=== PATIENT | male | born 1960 | race Hispanic/Latino ===

== ENCOUNTER 2022-09-28 13:56 | Inpatient (IN) | payer OTHER ==
[2022-09-28 14:39] LABS: #Basophils 0.1 thou/uL (0.0-0.2); #Eosinphils 0.1 thou/uL (0.0-0.7); #Lymphocytes 3.1 thou/uL (1.20-3.40); #Monocytes 0.9 thou/uL (0.11-0.59); #Neutrophils 8.8 thou/uL (1.40-6.50); %Basophils 0.4 % (0.0-1.0); %Eosinophils 1.1 % (0.0-10.0); %Lymphocytes 23.9 % (21.0-51.0); %Monocytes 7.1 % (0.0-10.0); %Neutrophils 67.4 % (42.0-75.0); Hemoglobin 15.8 g/dL (14.0-18.0); Mean Corpuscular HGB CONC 33.9 g/dL (32.0-36.0); Mean Corpuscular Hemoglobin 32.4 pg (27.0-31.0); Mean Corpuscular Volume 95.4 fl (78.0-98.0); Mean Platelet Volume 9.8 fL (7.4-10.4); Platelet Count 104 10x3/uL (130-400); RBC Distribution Width 11.9 % (11.5-14.5); Red Blood Cell (RBC) Count 4.87 mill/uL (4.70-6.10); White Blood Cell (WBC) Count 13.1 10x3/uL (4.8-10.8)
[2022-09-28 14:54] LABS: Platelet Morphology Comment Appears Decreased; RBC Morphology Normal
[2022-09-28 14:58] LABS: ALT (SGPT) 30 U/L (8-55); AST (SGOT) 23 U/L (5-34); Alkaline Phosphatase 100 U/L (40-110); Anion Gap 21 mmol/L (10-20); BUN (Urea Nitrogen) 14 mg/dL (8.4-25.7); Calc. Creatinine Clearance 0 mL/min (70-130); Calcium 9.6 mg/dL (7.8-10.44); Carbon Dioxide 16 mmol/L (22-29); Chloride 101 mmol/L (98-107); Estimated GFR 88; Globulin 5.5 g/dL (2.4-3.5); Glucose 179 mg/dL (70-105); Potassium 3.7 mmol/L (3.5-5.1); Protein, Total 9.5 g/dL (6.0-8.3); Sodium 134 mmol/L (136-145)
[2022-09-28] MEDS ORDERED: Vancomycin 1 GM/200 ML (FROZEN) BAG ONE (16:23)
[2022-09-28] MEDS ORDERED: Morphine 4 MG/ML VIAL ONE (16:23)
[2022-09-28] MEDS ORDERED: Acetaminophen 500 MG TAB ONE (16:23)
[2022-09-28] MEDS ORDERED: hydrALAZINE 20 MG/ML VIAL ONE (16:23)
[2022-09-28] MEDS ORDERED: Ondansetron PF 4 MG/2 ML Vial ONE (16:23)
[2022-09-28] MEDS ORDERED: Piperacillin/Tazobactam 4.5 GM VIAL ONE (16:24)
[2022-09-28] MEDS ORDERED: Ondansetron ODT 4 MG TAB PO PRN (17:11)
[2022-09-28] MEDS ORDERED: Senokot S 8.6-50 MG TAB PO PRN (17:11)
[2022-09-28 19:28] VITALS: BMI 25.9
[2022-09-28] MEDS ORDERED: VANCOMYCIN IVPB PRN (19:57)
[2022-09-28] MEDS ORDERED: Vancomycin HCl 750 MG in Sodium Chloride 0.9% 250 ML 250 ML IVPB SCH (20:00)
[2022-09-28] MEDS: Famotidine 20 MG TAB PO SCH (21:00)
[2022-09-28] MEDS: Rosuvastatin 20 MG TAB PO SCH (21:00)
[2022-09-28] MEDS ORDERED: Vancomycin 1.5 GRAM/300 ML BAG IVPB SCH (21:00)
[2022-09-28] MEDS: Piperacillin/Tazobactam 3.375 GM in Sodium Chloride 0.9% 100 ML IVPB SCH (21:08)
[2022-09-29] MEDS: Piperacillin/Tazobactam 3.375 GM in Sodium Chloride 0.9% 100 ML IVPB SCH ×3 (04:03→19:52)
[2022-09-29] MEDS: VANCOMYCIN 1.25 GM/250 ML BAG 1.25 GM in Premix Bag 1 BAG IVPB SCH ×2 (04:05→17:55)
[2022-09-29 06:20] LABS: #Eosinphils 0.2 thou/uL (0.0-0.7); #Monocytes 0.7 thou/uL (0.11-0.59); #Neutrophils 7.4 thou/uL (1.40-6.50); %Basophils 0.5 % (0.0-1.0); %Lymphocytes 19.5 % (21.0-51.0); %Neutrophils 71.2 % (42.0-75.0); Hemoglobin 14.3 g/dL (14.0-18.0); Mean Corpuscular HGB CONC 33.8 g/dL (32.0-36.0); Mean Corpuscular Hemoglobin 32.8 pg (27.0-31.0); Mean Corpuscular Volume 96.9 fl (78.0-98.0); Mean Platelet Volume 9.9 fL (7.4-10.4); Platelet Count 95 10x3/uL (130-400); RBC Distribution Width 11.8 % (11.5-14.5); Red Blood Cell (RBC) Count 4.35 mill/uL (4.70-6.10); White Blood Cell (WBC) Count 10.4 10x3/uL (4.8-10.8)
[2022-09-29 06:44] LABS: Anion Gap 18 mmol/L (10-20); BUN (Urea Nitrogen) 16 mg/dL (8.4-25.7); Calc. Creatinine Clearance 115 mL/min (70-130); Calcium 8.8 mg/dL (7.8-10.44); Carbon Dioxide 18 mmol/L (22-29); Chloride 101 mmol/L (98-107); Estimated GFR 101; Glucose 115 mg/dL (70-105); Potassium 3.9 mmol/L (3.5-5.1); Sodium 133 mmol/L (136-145)
[2022-09-29] MEDS: Lisinopril 10 MG TAB PO SCH (08:08)
[2022-09-29] MEDS: Famotidine 20 MG TAB PO SCH ×2 (08:08→19:53)
[2022-09-29] MEDS ORDERED: FLU VACC QS2022-23(6MOS UP)/PF 60 MCG/0.5 ML SYRINGE IM ONE (09:00)
[2022-09-29] MEDS ORDERED: Lactated Ringer's 1,000 ML IV SCH (10:45)
[2022-09-29] MEDS ORDERED: Dextrose 5% in Water 1,000 ML IV PRN (18:40)
[2022-09-29] MEDS ORDERED: Dextrose 50% Abboject 50 ML SYRINGE SLOW IVP PRN (18:40)
[2022-09-29] MEDS: Insulin Regular 300 UNITS/3 ML VIAL SC PRN (19:52)
[2022-09-29] MEDS: Rosuvastatin 20 MG TAB PO SCH (19:53)
[2022-09-29] MEDS: Acetaminophen 325 MG TAB PO PRN (21:04)
[2022-09-30 05:02] LABS: #Basophils 0.1 thou/uL (0.0-0.2); #Eosinphils 0.3 thou/uL (0.0-0.7); #Lymphocytes 2.3 thou/uL (1.20-3.40); #Monocytes 0.9 thou/uL (0.11-0.59); %Basophils 0.7 % (0.0-1.0); %Eosinophils 3.1 % (0.0-10.0); %Lymphocytes 24.1 % (21.0-51.0); %Monocytes 9.8 % (0.0-10.0); %Neutrophils 62.3 % (42.0-75.0); Hemoglobin 14.2 g/dL (14.0-18.0); Mean Corpuscular HGB CONC 33.7 g/dL (32.0-36.0); Mean Corpuscular Hemoglobin 32.8 pg (27.0-31.0); Mean Corpuscular Volume 97.1 fl (78.0-98.0); Mean Platelet Volume 9.3 fL (7.4-10.4); Platelet Count 102 10x3/uL (130-400); RBC Distribution Width 11.9 % (11.5-14.5); Red Blood Cell (RBC) Count 4.35 mill/uL (4.70-6.10); White Blood Cell (WBC) Count 9.6 10x3/uL (4.8-10.8)
[2022-09-30 05:12] LABS: Anion Gap 17 mmol/L (10-20); BUN (Urea Nitrogen) 19 mg/dL (8.4-25.7); Calc. Creatinine Clearance 107 mL/min (70-130); Carbon Dioxide 17 mmol/L (22-29); Chloride 104 mmol/L (98-107); Estimated GFR 98; Glucose 120 mg/dL (70-105); Potassium 3.9 mmol/L (3.5-5.1); Sodium 134 mmol/L (136-145)
[2022-09-30] MEDS: VANCOMYCIN 1.25 GM/250 ML BAG 1.25 GM in Premix Bag 1 BAG IVPB SCH ×2 (05:24→17:45)
[2022-09-30] MEDS: Piperacillin/Tazobactam 3.375 GM in Sodium Chloride 0.9% 100 ML IVPB SCH ×3 (05:24→20:34)
[2022-09-30] MEDS: Famotidine 20 MG TAB PO SCH ×2 (08:21→20:34)
[2022-09-30] MEDS: Lisinopril 10 MG TAB PO SCH (08:22)
[2022-09-30] MEDS: Insulin Regular 300 UNITS/3 ML VIAL SC PRN (13:00)
[2022-09-30] MEDS: Rosuvastatin 20 MG TAB PO SCH (20:34)
[2022-10-01] MEDS: VANCOMYCIN 1.25 GM/250 ML BAG 1.25 GM in Premix Bag 1 BAG IVPB SCH ×2 (05:24→17:05)
[2022-10-01] MEDS: cefTRIAXone\\ROCEPHIN 2 GM in Sodium Chloride 0.9% 100 ML IVPB SCH (07:12)
[2022-10-01] MEDS: Famotidine 20 MG TAB PO SCH ×2 (08:08→20:29)
[2022-10-01] MEDS: Lisinopril 10 MG TAB PO SCH (08:08)
[2022-10-01 16:43] LABS: Vancomycin, Trough 12.7 ug/mL
[2022-10-01] MEDS: Rosuvastatin 20 MG TAB PO SCH (20:29)
[2022-10-02] MEDS: cefTRIAXone\\ROCEPHIN 2 GM in Sodium Chloride 0.9% 100 ML IVPB SCH (05:02)
[2022-10-02] MEDS: VANCOMYCIN 1.25 GM/250 ML BAG 1.25 GM in Premix Bag 1 BAG IVPB SCH ×2 (06:09→17:56)
[2022-10-02 06:49] LABS: #Basophils 0.1 thou/uL (0.0-0.2); #Eosinphils 0.3 thou/uL (0.0-0.7); #Lymphocytes 2.2 thou/uL (1.20-3.40); #Monocytes 1.1 thou/uL (0.11-0.59); #Neutrophils 6.5 thou/uL (1.40-6.50); %Basophils 0.7 % (0.0-1.0); %Eosinophils 2.8 % (0.0-10.0); %Lymphocytes 21.5 % (21.0-51.0); %Monocytes 10.9 % (0.0-10.0); %Neutrophils 64.1 % (42.0-75.0); Hemoglobin 14.6 g/dL (14.0-18.0); Mean Corpuscular HGB CONC 34.5 g/dL (32.0-36.0); Mean Corpuscular Hemoglobin 32.7 pg (27.0-31.0); Mean Corpuscular Volume 94.7 fl (78.0-98.0); Mean Platelet Volume 8.9 fL (7.4-10.4); Platelet Count 128 10x3/uL (130-400); RBC Distribution Width 11.8 % (11.5-14.5); Red Blood Cell (RBC) Count 4.47 mill/uL (4.70-6.10); White Blood Cell (WBC) Count 10.2 10x3/uL (4.8-10.8)
[2022-10-02 07:09] LABS: Anion Gap 18 mmol/L (10-20); BUN (Urea Nitrogen) 15 mg/dL (8.4-25.7); Calc. Creatinine Clearance 112 mL/min (70-130); Carbon Dioxide 15 mmol/L (22-29); Chloride 102 mmol/L (98-107); Estimated GFR 100; Glucose 145 mg/dL (70-105); Potassium 3.9 mmol/L (3.5-5.1); Sodium 131 mmol/L (136-145)
[2022-10-02] MEDS: Sodium Bicarbonate Tab 325 MG TAB PO SCH ×3 (08:27→22:18)
[2022-10-02] MEDS: Famotidine 20 MG TAB PO SCH ×2 (08:27→22:18)
[2022-10-02] MEDS: Lisinopril 10 MG TAB PO SCH (08:29)
[2022-10-02] MEDS: Insulin Regular 300 UNITS/3 ML VIAL SC PRN ×2 (12:48→18:49)
[2022-10-02] MEDS: Rosuvastatin 20 MG TAB PO SCH (22:18)
[2022-10-03] MEDS: Acetaminophen 325 MG TAB PO PRN (04:38)
[2022-10-03] MEDS: cefTRIAXone\\ROCEPHIN 2 GM in Sodium Chloride 0.9% 100 ML IVPB SCH (04:39)
[2022-10-03 06:47] LABS: Anion Gap 17 mmol/L (10-20); BUN (Urea Nitrogen) 18 mg/dL (8.4-25.7); Calc. Creatinine Clearance 115 mL/min (70-130); Calcium 8.8 mg/dL (7.8-10.44); Carbon Dioxide 18 mmol/L (22-29); Chloride 103 mmol/L (98-107); Estimated GFR 101; Glucose 141 mg/dL (70-105); Potassium 3.5 mmol/L (3.5-5.1); Sodium 134 mmol/L (136-145)
[2022-10-03] MEDS ORDERED: Ibuprofen 200 MG TAB PO SCH (09:00)
[2022-10-03] MEDS ORDERED: Ibuprofen 600 MG TAB PO SCH (09:00)
[2022-10-03] MEDS: Acetaminophen 325 MG TAB PO SCH ×3 (09:41→20:50)
[2022-10-03] MEDS: Sodium Bicarbonate Tab 325 MG TAB PO SCH ×3 (09:42→20:50)
[2022-10-03] MEDS: Famotidine 20 MG TAB PO SCH ×2 (09:42→20:50)
[2022-10-03] MEDS: Lisinopril 10 MG TAB PO SCH (09:42)
[2022-10-03] MEDS: Insulin Regular 300 UNITS/3 ML VIAL SC PRN ×3 (11:39→20:51)
[2022-10-03] MEDS: Rosuvastatin 20 MG TAB PO SCH (20:50)
[2022-10-03] MEDS ORDERED: Doxycycline 100 MG CAP PO SCH (21:00)
[2022-10-04] MEDS: Acetaminophen 325 MG TAB PO PRN (05:23)
[2022-10-04] MEDS ORDERED: cefTRIAXone\\ROCEPHIN 2 GM VIAL ONE (05:24)
[2022-10-04] MEDS: cefTRIAXone\\ROCEPHIN 2 GM in Sodium Chloride 0.9% 100 ML IVPB SCH (05:26)
[2022-10-04 06:29] LABS: #Basophils 0.1 thou/uL (0.0-0.2); #Eosinphils 0.2 thou/uL (0.0-0.7); #Lymphocytes 2.3 thou/uL (1.20-3.40); #Neutrophils 5.7 thou/uL (1.40-6.50); %Basophils 0.7 % (0.0-1.0); %Eosinophils 2.4 % (0.0-10.0); %Lymphocytes 25.2 % (21.0-51.0); %Monocytes 10.5 % (0.0-10.0); %Neutrophils 61.3 % (42.0-75.0); Hemoglobin 14.9 g/dL (14.0-18.0); Mean Corpuscular HGB CONC 35.3 g/dL (32.0-36.0); Mean Corpuscular Hemoglobin 33.1 pg (27.0-31.0); Mean Corpuscular Volume 93.9 fl (78.0-98.0); Mean Platelet Volume 8.8 fL (7.4-10.4); Platelet Count 140 10x3/uL (130-400); RBC Distribution Width 11.8 % (11.5-14.5); Red Blood Cell (RBC) Count 4.49 mill/uL (4.70-6.10); White Blood Cell (WBC) Count 9.3 10x3/uL (4.8-10.8)
[2022-10-04 06:45] LABS: Anion Gap 14 mmol/L (10-20); BUN (Urea Nitrogen) 17 mg/dL (8.4-25.7); Calc. Creatinine Clearance 111 mL/min (70-130); Carbon Dioxide 21 mmol/L (22-29); Chloride 104 mmol/L (98-107); Estimated GFR 99; Glucose 128 mg/dL (70-105); Potassium 3.5 mmol/L (3.5-5.1); Sodium 135 mmol/L (136-145)
[2022-10-04] MEDS ORDERED: CEFAZOLIN 2 GM in Sodium Chloride 0.9% 100 ML IVPB SCH (08:30)
[2022-10-04] MEDS ORDERED: Vancomycin 1 GM in Premix Bag 1 BAG IVPB SCH (08:45)
[2022-10-04] MEDS ORDERED: Neomycin-Polymyxin 1 ML AMP ONE (16:53)
[2022-10-04] MEDS ORDERED: Sodium Chloride 0.9% 100 ML ONE (17:14)
[2022-10-04] MEDS ORDERED: CEFAZOLIN 2 GM VIAL ONE (17:14)
[2022-10-04] MEDS ORDERED: Morphine 10 MG/ML VIAL ONE ×2 (17:26→17:49)
[2022-10-04] MEDS ORDERED: PROPOFOL 200 MG/20 ML VIAL ONE (17:28)
[2022-10-04] MEDS ORDERED: Lidocaine 1% PF 5 ML VIAL ONE (17:28)
[2022-10-04] MEDS ORDERED: Ondansetron PF 4 MG/2 ML Vial ONE (17:28)
[2022-10-04] MEDS ORDERED: Ketorolac Tromethamine 30 MG/ML VIAL ONE (17:28)
[2022-10-04] MEDS ORDERED: Ondansetron HCl/PF 4 MG/2 ML Vial IVP PRN (18:05)
[2022-10-04] MEDS ORDERED: Promethazine HCl 25 MG/ML VIAL IVPB PRN (18:05)
[2022-10-04] MEDS ORDERED: Promethazine HCl 25 MG/ML VIAL IM PRN (18:05)
[2022-10-04] MEDS ORDERED: Fentanyl 100 MCG/2 ML VIAL ONE ×2 (18:19→19:17)
[2022-10-04] MEDS ORDERED: Labetalol HCl 100 MG/20 ML VIAL ONE (18:30)
[2022-10-04] MEDS: Acetaminophen 325 MG TAB PO SCH ×3 (19:00→19:59)
[2022-10-04] MEDS: Lisinopril 10 MG TAB PO SCH (19:01)
[2022-10-04] MEDS: Potassium Bicarbonate/Cit Ac 20 MEQ TAB PO SCH ×2 (19:01→19:03)
[2022-10-04] MEDS: Famotidine 20 MG TAB PO SCH ×2 (19:01→19:59)
[2022-10-04] MEDS: VANCOMYCIN 1.75 GM/500 ML BAG 1.75 GM in Premix Bag 1 BAG IVPB SCH ×2 (19:02→20:53)
[2022-10-04] MEDS: Sodium Bicarbonate Tab 325 MG TAB PO SCH (19:02)
[2022-10-04] MEDS: Rosuvastatin 20 MG TAB PO SCH (19:59)
[2022-10-04] MEDS: hydrALAZINE 25 MG TAB PO PRN (20:59)
[2022-10-05] MEDS: Acetaminophen 325 MG TAB PO PRN (02:24)
[2022-10-05] MEDS: cefTRIAXone\\ROCEPHIN 2 GM in Sodium Chloride 0.9% 100 ML IVPB SCH (05:05)
[2022-10-05] MEDS: Morphine 4 MG/ML VIAL SLOW IVP PRN ×2 (05:10→18:17)
[2022-10-05 07:27] LABS: #Basophils 0.1 thou/uL (0.0-0.2); #Eosinphils 0.2 thou/uL (0.0-0.7); #Lymphocytes 1.9 thou/uL (1.20-3.40); #Neutrophils 6.6 thou/uL (1.40-6.50); %Basophils 0.8 % (0.0-1.0); %Eosinophils 2.1 % (0.0-10.0); %Lymphocytes 19.4 % (21.0-51.0); %Monocytes 10.4 % (0.0-10.0); %Neutrophils 67.3 % (42.0-75.0); Hemoglobin 13.9 g/dL (14.0-18.0); Mean Corpuscular HGB CONC 33.8 g/dL (32.0-36.0); Mean Corpuscular Hemoglobin 32.3 pg (27.0-31.0); Mean Corpuscular Volume 95.5 fl (78.0-98.0); Mean Platelet Volume 8.4 fL (7.4-10.4); Platelet Count 153 10x3/uL (130-400); RBC Distribution Width 11.7 % (11.5-14.5); White Blood Cell (WBC) Count 9.8 10x3/uL (4.8-10.8)
[2022-10-05 07:49] LABS: Anion Gap 13 mmol/L (10-20); BUN (Urea Nitrogen) 17 mg/dL (8.4-25.7); Calc. Creatinine Clearance 111 mL/min (70-130); Calcium 8.6 mg/dL (7.8-10.44); Carbon Dioxide 20 mmol/L (22-29); Chloride 104 mmol/L (98-107); Estimated GFR 99; Glucose 150 mg/dL (70-105); Potassium 3.8 mmol/L (3.5-5.1); Sodium 133 mmol/L (136-145)
[2022-10-05] MEDS: Acetaminophen 325 MG TAB PO SCH (09:20)
[2022-10-05] MEDS: Famotidine 20 MG TAB PO SCH ×2 (09:20→20:26)
[2022-10-05] MEDS: Lisinopril 10 MG TAB PO SCH ×2 (09:20→20:26)
[2022-10-05] MEDS: VANCOMYCIN 1.75 GM/500 ML BAG 1.75 GM in Premix Bag 1 BAG IVPB SCH ×2 (09:26→20:38)
[2022-10-05] MEDS: hydrALAZINE 25 MG TAB PO PRN (09:26)
[2022-10-05] MEDS: Insulin Regular 300 UNITS/3 ML VIAL SC PRN (12:00)
[2022-10-05] MEDS: Rosuvastatin 20 MG TAB PO SCH (20:27)
[2022-10-05 20:52] LABS: Vancomycin, Trough 23.9 ug/mL
[2022-10-06] MEDS: cefTRIAXone\\ROCEPHIN 2 GM in Sodium Chloride 0.9% 100 ML IVPB SCH (06:07)
[2022-10-06 07:13] LABS: #Basophils 0.1 thou/uL (0.0-0.2); #Eosinphils 0.2 thou/uL (0.0-0.7); #Lymphocytes 2.2 thou/uL (1.20-3.40); #Monocytes 0.9 thou/uL (0.11-0.59); #Neutrophils 5.4 thou/uL (1.40-6.50); %Basophils 0.9 % (0.0-1.0); %Eosinophils 2.2 % (0.0-10.0); %Monocytes 10.2 % (0.0-10.0); %Neutrophils 61.8 % (42.0-75.0); Mean Corpuscular HGB CONC 34.6 g/dL (32.0-36.0); Mean Corpuscular Hemoglobin 33.2 pg (27.0-31.0); Mean Corpuscular Volume 96.1 fl (78.0-98.0); Mean Platelet Volume 8.4 fL (7.4-10.4); Platelet Count 165 10x3/uL (130-400); RBC Distribution Width 11.7 % (11.5-14.5); Red Blood Cell (RBC) Count 4.21 mill/uL (4.70-6.10); White Blood Cell (WBC) Count 8.8 10x3/uL (4.8-10.8)
[2022-10-06 07:42] LABS: Anion Gap 13 mmol/L (10-20); BUN (Urea Nitrogen) 11 mg/dL (8.4-25.7); Calc. Creatinine Clearance 99 mL/min (70-130); Calcium 8.5 mg/dL (7.8-10.44); Carbon Dioxide 20 mmol/L (22-29); Chloride 105 mmol/L (98-107); Estimated GFR 92; Glucose 182 mg/dL (70-105); Sodium 134 mmol/L (136-145)
[2022-10-06] MEDS: Lisinopril 10 MG TAB PO SCH ×2 (08:41→20:13)
[2022-10-06] MEDS: Famotidine 20 MG TAB PO SCH ×2 (08:41→20:13)
[2022-10-06] MEDS: VANCOMYCIN 1.25 GM/250 ML BAG 1.25 GM in Premix Bag 1 BAG IVPB SCH ×2 (08:42→20:13)
[2022-10-06] MEDS: HYDROcodone/Acetaminophen 5/325 mg Tablet PO PRN ×2 (08:45→18:26)
[2022-10-06] MEDS: Morphine 4 MG/ML VIAL SLOW IVP PRN (11:37)
[2022-10-06] MEDS: Insulin Regular 300 UNITS/3 ML VIAL SC PRN (13:37)
[2022-10-06] MEDS: Rosuvastatin 20 MG TAB PO SCH (20:14)
[2022-10-07] MEDS: HYDROcodone/Acetaminophen 5/325 mg Tablet PO PRN ×3 (02:05→22:12)
[2022-10-07] MEDS: cefTRIAXone\\ROCEPHIN 2 GM in Sodium Chloride 0.9% 100 ML IVPB SCH (05:03)
[2022-10-07] MEDS: Famotidine 20 MG TAB PO SCH ×2 (08:47→20:26)
[2022-10-07] MEDS: Lisinopril 10 MG TAB PO SCH ×2 (08:47→20:27)
[2022-10-07] MEDS: VANCOMYCIN 1.25 GM/250 ML BAG 1.25 GM in Premix Bag 1 BAG IVPB SCH (08:47)
[2022-10-07] MEDS: Morphine 4 MG/ML VIAL SLOW IVP PRN ×2 (14:28→20:23)
[2022-10-07] MEDS: Insulin Regular 300 UNITS/3 ML VIAL SC PRN ×2 (18:08→20:30)
[2022-10-07] MEDS: Senokot S 8.6-50 MG TAB PO SCH (20:26)
[2022-10-07] MEDS: Rosuvastatin 20 MG TAB PO SCH (20:26)
[2022-10-07] MEDS: Vancomycin 1 GM in Premix Bag 1 BAG IVPB SCH (22:00)
[2022-10-08] MEDS: Morphine 4 MG/ML VIAL SLOW IVP PRN ×2 (06:01→20:20)
[2022-10-08 08:01] LABS: #Basophils 0.1 thou/uL (0.0-0.2); #Eosinphils 0.3 thou/uL (0.0-0.7); #Lymphocytes 2.8 thou/uL (1.20-3.40); #Monocytes 0.8 thou/uL (0.11-0.59); #Neutrophils 5.9 thou/uL (1.40-6.50); %Basophils 1.1 % (0.0-1.0); %Eosinophils 2.8 % (0.0-10.0); %Lymphocytes 28.9 % (21.0-51.0); %Monocytes 7.7 % (0.0-10.0); %Neutrophils 59.5 % (42.0-75.0); Hemoglobin 15.6 g/dL (14.0-18.0); Mean Corpuscular HGB CONC 34.5 g/dL (32.0-36.0); Mean Corpuscular Hemoglobin 32.7 pg (27.0-31.0); Mean Corpuscular Volume 94.8 fl (78.0-98.0); Mean Platelet Volume 8.8 fL (7.4-10.4); Platelet Count 252 10x3/uL (130-400); RBC Distribution Width 11.7 % (11.5-14.5); Red Blood Cell (RBC) Count 4.78 mill/uL (4.70-6.10); White Blood Cell (WBC) Count 9.8 10x3/uL (4.8-10.8)
[2022-10-08 08:37] LABS: Anion Gap 15 mmol/L (10-20); BUN (Urea Nitrogen) 9 mg/dL (8.4-25.7); Calc. Creatinine Clearance 78 mL/min (70-130); Calcium 9.7 mg/dL (7.8-10.44); Carbon Dioxide 21 mmol/L (22-29); Chloride 103 mmol/L (98-107); Estimated GFR 69; Glucose 174 mg/dL (70-105); Sodium 135 mmol/L (136-145)
[2022-10-08] MEDS: Senokot S 8.6-50 MG TAB PO SCH ×2 (08:47→20:24)
[2022-10-08] MEDS: Lisinopril 10 MG TAB PO SCH ×2 (08:48→20:23)
[2022-10-08] MEDS: Famotidine 20 MG TAB PO SCH ×2 (08:48→20:23)
[2022-10-08] MEDS: Vancomycin 1 GM in Premix Bag 1 BAG IVPB SCH ×2 (08:49→20:22)
[2022-10-08] MEDS: Insulin Regular 300 UNITS/3 ML VIAL SC PRN ×3 (12:51→20:28)
[2022-10-08] MEDS: HYDROcodone/Acetaminophen 5/325 mg Tablet PO PRN (19:18)
[2022-10-08] MEDS ORDERED: hydrALAZINE 25 MG TAB PO PRN (20:13)
[2022-10-08] MEDS: Rosuvastatin 20 MG TAB PO SCH (20:23)
[2022-10-09] MEDS: Morphine 4 MG/ML VIAL SLOW IVP PRN ×4 (03:06→20:32)
[2022-10-09 08:52] LABS: Vancomycin, Trough 31.9 ug/mL
[2022-10-09] MEDS: Famotidine 20 MG TAB PO SCH ×2 (09:30→20:38)
[2022-10-09] MEDS: glipiZIDE 5 MG TAB PO SCH (09:30)
[2022-10-09] MEDS: Senokot S 8.6-50 MG TAB PO SCH ×2 (09:30→20:39)
[2022-10-09] MEDS: Lisinopril 10 MG TAB PO SCH ×2 (09:30→20:38)
[2022-10-09] MEDS: Insulin Regular 300 UNITS/3 ML VIAL SC PRN (12:26)
[2022-10-09] MEDS: hydrALAZINE 25 MG TAB PO SCH ×3 (12:26→23:49)
[2022-10-09] MEDS ORDERED: [UNRECOGNIZED DRUG - REMARK] IVPB SCH (12:30)
[2022-10-09] MEDS ORDERED: Senokot S 8.6-50 MG TAB PO PRN (13:45)
[2022-10-09] MEDS: Rosuvastatin 20 MG TAB PO SCH (20:37)
[2022-10-09] MEDS ORDERED: Vancomycin 1 GM in Premix Bag 1 BAG IVPB SCH (21:00)
[2022-10-09] MEDS: Acetaminophen 325 MG TAB PO PRN (23:52)
[2022-10-10] MEDS: hydrALAZINE 25 MG TAB PO SCH ×4 (05:57→23:28)
[2022-10-10 07:29] LABS: #Basophils 0.1 thou/uL (0.0-0.2); #Eosinphils 0.2 thou/uL (0.0-0.7); #Lymphocytes 2.6 thou/uL (1.20-3.40); #Monocytes 0.8 thou/uL (0.11-0.59); #Neutrophils 5.2 thou/uL (1.40-6.50); %Eosinophils 2.8 % (0.0-10.0); %Lymphocytes 29.1 % (21.0-51.0); %Monocytes 9.1 % (0.0-10.0); Hemoglobin 14.8 g/dL (14.0-18.0); Mean Corpuscular HGB CONC 34.6 g/dL (32.0-36.0); Mean Corpuscular Volume 95.4 fl (78.0-98.0); Mean Platelet Volume 8.2 fL (7.4-10.4); Platelet Count 224 10x3/uL (130-400); RBC Distribution Width 11.7 % (11.5-14.5); Red Blood Cell (RBC) Count 4.48 mill/uL (4.70-6.10); White Blood Cell (WBC) Count 8.9 10x3/uL (4.8-10.8)
[2022-10-10 07:49] LABS: Anion Gap 13 mmol/L (10-20); BUN (Urea Nitrogen) 18 mg/dL (8.4-25.7); Calc. Creatinine Clearance 64 mL/min (70-130); Calcium 9.1 mg/dL (7.8-10.44); Carbon Dioxide 21 mmol/L (22-29); Chloride 104 mmol/L (98-107); Estimated GFR 54; Glucose 165 mg/dL (70-105); Potassium 3.9 mmol/L (3.5-5.1); Sodium 134 mmol/L (136-145)
[2022-10-10 07:50] LABS: Vancomycin, Random 16.1 ug/mL (See Comment)
[2022-10-10] MEDS: Lisinopril 10 MG TAB PO SCH ×2 (10:04→22:13)
[2022-10-10] MEDS: Famotidine 20 MG TAB PO SCH ×2 (10:05→22:12)
[2022-10-10] MEDS: glipiZIDE 5 MG TAB PO SCH (10:05)
[2022-10-10] MEDS: Senokot S 8.6-50 MG TAB PO SCH ×2 (10:05→22:12)
[2022-10-10] MEDS: Vancomycin 1.5 GRAM/300 ML BAG 1.5 GM in Premix Bag 1 BAG IVPB SCH (10:20)
[2022-10-10] MEDS: Morphine 4 MG/ML VIAL SLOW IVP PRN ×2 (10:47→18:51)
[2022-10-10] MEDS: Acetaminophen 325 MG TAB PO PRN ×2 (11:32→22:11)
[2022-10-10] MEDS: Insulin Regular 300 UNITS/3 ML VIAL SC PRN (13:07)
[2022-10-10] MEDS ORDERED: Vancomycin HCl 500 MG in Sodium Chloride 0.9% 100 ML IVPB SCH ×2 (21:00)
[2022-10-10] MEDS: Rosuvastatin 20 MG TAB PO SCH (22:14)
[2022-10-11] MEDS: Morphine 4 MG/ML VIAL SLOW IVP PRN ×3 (04:34→20:10)
[2022-10-11] MEDS: hydrALAZINE 25 MG TAB PO SCH ×5 (05:21→23:15)
[2022-10-11 05:53] LABS: #Basophils 0.2 thou/uL (0.0-0.2); #Eosinphils 0.3 thou/uL (0.0-0.7); #Lymphocytes 2.8 thou/uL (1.20-3.40); #Monocytes 0.8 thou/uL (0.11-0.59); #Neutrophils 5.8 thou/uL (1.40-6.50); %Basophils 1.6 % (0.0-1.0); %Eosinophils 3.3 % (0.0-10.0); %Lymphocytes 28.5 % (21.0-51.0); %Neutrophils 58.6 % (42.0-75.0); Hemoglobin 14.3 g/dL (14.0-18.0); Mean Corpuscular HGB CONC 33.5 g/dL (32.0-36.0); Mean Corpuscular Hemoglobin 31.9 pg (27.0-31.0); Mean Corpuscular Volume 95.1 fl (78.0-98.0); Mean Platelet Volume 8.8 fL (7.4-10.4); Platelet Count 240 10x3/uL (130-400); RBC Distribution Width 11.7 % (11.5-14.5); Red Blood Cell (RBC) Count 4.49 mill/uL (4.70-6.10); White Blood Cell (WBC) Count 9.9 10x3/uL (4.8-10.8)
[2022-10-11 06:13] LABS: Anion Gap 13 mmol/L (10-20); BUN (Urea Nitrogen) 21 mg/dL (8.4-25.7); Calc. Creatinine Clearance 75 mL/min (70-130); Calcium 9.3 mg/dL (7.8-10.44); Carbon Dioxide 23 mmol/L (22-29); Chloride 103 mmol/L (98-107); Estimated GFR 65; Glucose 126 mg/dL (70-105); Potassium 3.8 mmol/L (3.5-5.1); Sodium 135 mmol/L (136-145)
[2022-10-11] MEDS: Vancomycin 1.5 GRAM/300 ML BAG 1.5 GM in Premix Bag 1 BAG IVPB SCH (08:54)
[2022-10-11] MEDS: Famotidine 20 MG TAB PO SCH ×2 (08:54→20:11)
[2022-10-11] MEDS: Lisinopril 10 MG TAB PO SCH ×2 (08:54→20:11)
[2022-10-11] MEDS: Senokot S 8.6-50 MG TAB PO SCH ×2 (08:54→20:12)
[2022-10-11] MEDS: glipiZIDE 5 MG TAB PO SCH (08:54)
[2022-10-11] MEDS ORDERED: HYDROmorphone 0.5 MG/0.5 ML SYRINGE SLOW IVP PRN (11:40)
[2022-10-11 19:39] VITALS: TEMP 98
[2022-10-11] MEDS: Rosuvastatin 20 MG TAB PO SCH (20:11)
[2022-10-11] MEDS ORDERED: Morphine 2 MG/ML VIAL SLOW IVP PRN (20:34)
[2022-10-12] MEDS: hydrALAZINE 25 MG TAB PO SCH ×3 (04:55→17:29)
[2022-10-12] MEDS ORDERED: HYDROmorphone 0.5 MG/0.5 ML SYRINGE SLOW IVP PRN (08:51)
[2022-10-12 09:33] LABS: Vancomycin, Trough 16.8 ug/mL
[2022-10-12] MEDS: Famotidine 20 MG TAB PO SCH (09:57)
[2022-10-12] MEDS: Senokot S 8.6-50 MG TAB PO SCH (09:57)
[2022-10-12] MEDS: Lisinopril 10 MG TAB PO SCH (09:57)
[2022-10-12] MEDS: glipiZIDE 5 MG TAB PO SCH (09:57)
[2022-10-12] MEDS: Vancomycin 1.5 GRAM/300 ML BAG 1.5 GM in Premix Bag 1 BAG IVPB SCH (10:00)
[2022-10-12 16:44] VITALS: BP 137/71
== END 2022-10-12 19:38 | disposition home or self-care (01) | DRG 464 ==
LOC: ERS 13:56 → T4-B 17:57
PROVIDERS: ADMIT Student in an Organized Health Care Education/Training Program; ATTEND Internal Medicine
PROC: 0J9N0ZZ Drainage of Right Lower Leg Subcutaneous Tissue and Fascia, Open Approach (ICD-10-PCS; principal; 2022-10-04)
PROC: 0JBN0ZZ Excision of Right Lower Leg Subcutaneous Tissue and Fascia, Open Approach (ICD-10-PCS; 2022-10-04)
DX: M00.061 Staphylococcal arthritis, right knee (principal); L02.415 Cutaneous abscess of right lower limb; L03.115 Cellulitis of right lower limb; Z20.822 Contact with and (suspected) exposure to COVID-19; I10 Essential (primary) hypertension; F17.220 Nicotine dependence, chewing tobacco, uncomplicated; E78.00 Pure hypercholesterolemia, unspecified; E11.42 Type 2 diabetes mellitus with diabetic polyneuropathy; M71.561 Other bursitis, not elsewhere classified, right knee; B95.62 Methicillin resistant Staphylococcus aureus infection as the cause of diseases classified elsewhere
CPT/HCPCS: 36415; 36416; 80048; 80053; 80202; 83036; 83605; 85025; 85652; 86140; 87040; 87070; 87077; 87186; 87205; 87811; 96365; 96375; 97139; J0360; J0696; J1170; J1815; J1885; J2270; J2272; J2405; J2543; J2704; J3010; J3370; J3370-JW; J3490; J7050; J7120; U0003; U0005

== ENCOUNTER 2023-05-15 15:04 | Inpatient (IN) | payer OTHER, SELFPAY ==
[2023-05-15] MEDS ORDERED: Cefepime 2 GM VIAL ONE (15:59)
[2023-05-15] MEDS ORDERED: Vancomycin 1 GM/200 ML (FROZEN) BAG ONE ×2 (15:59→16:46)
[2023-05-15 16:15] LABS: #Basophils 0.1 thou/uL (0.0-0.2); #Eosinphils 0.1 thou/uL (0.0-0.7); #Monocytes 0.9 thou/uL (0.11-0.59); #Neutrophils 10.8 thou/uL (1.40-6.50); %Basophils 0.4 % (0.0-1.0); %Eosinophils 0.4 % (0.0-10.0); %Lymphocytes 15.1 % (21.0-51.0); %Monocytes 6.6 % (0.0-10.0); Hematocrit 35.6 % (42.0-52.0); Hemoglobin 12.3 g/dL (14.0-18.0); Mean Corpuscular HGB CONC 34.6 g/dL (32.0-36.0); Mean Corpuscular Hemoglobin 32.5 pg (27.0-31.0); Mean Corpuscular Volume 93.9 fl (78.0-98.0); Mean Platelet Volume 11.7 fL (7.4-10.4); RBC Distribution Width 12.2 % (11.5-14.5); Red Blood Cell (RBC) Count 3.79 mill/uL (4.70-6.10)
[2023-05-15 16:24] LABS: Platelet Count 133 10x3/uL (130-400)
[2023-05-15 16:39] LABS: ALT (SGPT) 22 U/L (8-55); AST (SGOT) 20 U/L (5-34); Alkaline Phosphatase 119 U/L (40-110); Anion Gap 14 mmol/L (10-20); BUN (Urea Nitrogen) 21 mg/dL (8.4-25.7); Bilirubin, Total 0.8 mg/dL (0.2-1.2); Calc. Creatinine Clearance 0 mL/min (70-130); Calcium 8.9 mg/dL (7.8-10.44); Carbon Dioxide 22 mmol/L (22-29); Chloride 102 mmol/L (98-107); Estimated GFR 43; Globulin 4.8 g/dL (2.4-3.5); Glucose 301 mg/dL (70-105); Lipase 82 U/L (8-78); Potassium 4.6 mmol/L (3.5-5.1); Protein, Total 8.8 g/dL (6.0-8.3); Sodium 133 mmol/L (136-145)
[2023-05-15 16:42] LABS: Troponin I Less than 0.010 ng/mL (< 0.028)
[2023-05-15] MEDS ORDERED: Morphine 4 MG/ML VIAL ONE (16:46)
[2023-05-15] MEDS ORDERED: Calcium Carbonate 500 MG ChewTAB PO PRN (18:16)
[2023-05-15] MEDS ORDERED: Ondansetron ODT 4 MG TAB PO PRN (18:16)
[2023-05-15] MEDS ORDERED: Senokot S 8.6-50 MG TAB PO PRN (18:16)
[2023-05-15] MEDS ORDERED: HumaLOG 300 UNITS/3 ML VIAL SC PRN (18:23)
[2023-05-15] MEDS ORDERED: Dextrose 5% in Water 1,000 ML IV PRN (18:23)
[2023-05-15] MEDS ORDERED: Dextrose 50% Abboject 50 ML SYRINGE SLOW IVP PRN (18:23)
[2023-05-15] MEDS ORDERED: Glucagon 1 MG/ML KIT IM PRN (18:23)
[2023-05-15 18:25] LABS: Bilirubin Negative (Negative); Blood, Urine Negative (Negative); CAUTI Indications for Culture Fever or rigors; Clarity Clear (Clear); Glucose, Urine (Dipstick) Greater than 1000 mg/dL (Negative); Ketone, Urine Negative (Negative); Leukocyte Negative Leu/uL (Negative); Nitrite Negative (Negative); Protein, Urine (Dipstick) 10 mg/dL (Neg-Trace); RBC/HPF 0-3 HPF (0-3); Specific Gravity, Urine 1.033 (1.002-1.036); Squamous Epithelial None Seen HPF (0-3); Urobilinogen Normal mg/dL (Less than 2); WBC/HPF None Seen HPF (0-3); pH, Urine 5.5 (5.0-9.0)
[2023-05-15 18:34] LABS: Bacteria/HPF None Seen HPF (None Seen)
[2023-05-15 18:35] LABS: Urine Culture Reflex No No
[2023-05-15] MEDS ORDERED: Lactated Ringer's 1,000 ML IV SCH (18:45)
[2023-05-15 20:53] LABS: Hemoglobin A1c 10.7 % (4.0-6.0)
[2023-05-15] MEDS ORDERED: hydrALAZINE 25 MG TAB PO SCH (21:00)
[2023-05-15] MEDS ORDERED: Lisinopril 20 MG TAB PO SCH (21:00)
[2023-05-15 21:27] VITALS: BMI 24.5
[2023-05-15] MEDS ORDERED: VANCOMYCIN IVPB PRN (21:47)
[2023-05-15] MEDS ORDERED: Famotidine 20 MG TAB PO SCH (22:00)
[2023-05-15] MEDS ORDERED: Vancomycin HCl 500 MG in Sodium Chloride 0.9% 100 ML IVPB SCH (22:00)
[2023-05-15] MEDS: Acetaminophen 325 MG TAB PO PRN (22:01)
[2023-05-15] MEDS: Rosuvastatin 20 MG TAB PO SCH (22:01)
[2023-05-16] MEDS: Acetaminophen 325 MG TAB PO PRN ×2 (03:48→20:33)
[2023-05-16] MEDS ORDERED: Piperacillin/Tazobactam 3.375 GM in Sodium Chloride 0.9% 100 ML IVPB SCH ×2 (04:00→06:00)
[2023-05-16 06:00] LABS: #Basophils 0.1 thou/uL (0.0-0.2); #Eosinphils 0.2 thou/uL (0.0-0.7); #Monocytes 0.9 thou/uL (0.11-0.59); #Neutrophils 8.4 thou/uL (1.40-6.50); %Basophils 0.5 % (0.0-1.0); %Eosinophils 1.4 % (0.0-10.0); %Lymphocytes 17.1 % (21.0-51.0); %Monocytes 7.3 % (0.0-10.0); %Neutrophils 72.8 % (42.0-75.0); Hematocrit 31.3 % (42.0-52.0); Hemoglobin 10.6 g/dL (14.0-18.0); Mean Corpuscular HGB CONC 33.9 g/dL (32.0-36.0); Mean Corpuscular Hemoglobin 32.6 pg (27.0-31.0); Mean Corpuscular Volume 96.3 fl (78.0-98.0); Mean Platelet Volume 11.8 fL (7.4-10.4); Platelet Count 113 10x3/uL (130-400); RBC Distribution Width 12.3 % (11.5-14.5); Red Blood Cell (RBC) Count 3.25 mill/uL (4.70-6.10); White Blood Cell (WBC) Count 11.6 10x3/uL (4.8-10.8)
[2023-05-16 06:19] LABS: Anion Gap 15 mmol/L (10-20); BUN (Urea Nitrogen) 17 mg/dL (8.4-25.7); Calc. Creatinine Clearance 73 mL/min (70-130); Calcium 8.3 mg/dL (7.8-10.44); Carbon Dioxide 17 mmol/L (22-29); Chloride 107 mmol/L (98-107); Estimated GFR 68; Glucose 167 mg/dL (70-105); Potassium 4.2 mmol/L (3.5-5.1); Sodium 135 mmol/L (136-145)
[2023-05-16] MEDS: HumaLOG 300 UNITS/3 ML VIAL SC PRN (06:33)
[2023-05-16] MEDS: Piperacillin/Tazobactam 3.375 GM in Sodium Chloride 0.9% 100 ML IVPB SCH ×2 (07:55→16:39)
[2023-05-16] MEDS ORDERED: Vancomycin 1.5 GRAM/300 ML BAG 1.5 GM in Premix Bag 1 BAG IVPB SCH (09:00)
[2023-05-16] MEDS ORDERED: Lisinopril 20 MG TAB PO SCH (09:00)
[2023-05-16] MEDS ORDERED: Famotidine 20 MG TAB PO SCH (09:00)
[2023-05-16] MEDS ORDERED: traMADol HCl 50 MG TAB PO PRN (12:19)
[2023-05-16] MEDS ORDERED: VANCOMYCIN 1.25 GM/250 ML BAG 1.25 GM in Premix Bag 1 BAG IVPB SCH (16:00)
[2023-05-16] MEDS: Cefepime 1 GM in Sodium Chloride 0.9% 100 ML IVPB SCH (20:31)
[2023-05-16] MEDS: Pregabalin 75 MG CAP PO SCH (20:33)
[2023-05-16] MEDS: Rosuvastatin 20 MG TAB PO SCH (20:33)
[2023-05-16] MEDS: metroNIDAZOLE 500 MG TAB PO SCH (20:33)
[2023-05-17 07:18] LABS: #Basophils 0.1 thou/uL (0.0-0.2); #Eosinphils 0.2 thou/uL (0.0-0.7); #Monocytes 0.9 thou/uL (0.11-0.59); #Neutrophils 9.5 thou/uL (1.40-6.50); %Basophils 0.6 % (0.0-1.0); %Eosinophils 1.5 % (0.0-10.0); %Lymphocytes 15.1 % (21.0-51.0); %Monocytes 6.9 % (0.0-10.0); %Neutrophils 75.1 % (42.0-75.0); Hematocrit 32.7 % (42.0-52.0); Hemoglobin 10.7 g/dL (14.0-18.0); Mean Corpuscular HGB CONC 32.7 g/dL (32.0-36.0); Mean Corpuscular Hemoglobin 32.4 pg (27.0-31.0); Mean Corpuscular Volume 99.1 fl (78.0-98.0); Mean Platelet Volume 11.3 fL (7.4-10.4); Platelet Count 133 10x3/uL (130-400); RBC Distribution Width 12.3 % (11.5-14.5); White Blood Cell (WBC) Count 12.6 10x3/uL (4.8-10.8)
[2023-05-17 07:42] LABS: Anion Gap 20 mmol/L (10-20); BUN (Urea Nitrogen) 19 mg/dL (8.4-25.7); Calc. Creatinine Clearance 62 mL/min (70-130); Calcium 8.8 mg/dL (7.8-10.44); Carbon Dioxide 15 mmol/L (22-29); Chloride 104 mmol/L (98-107); Estimated GFR 57; Glucose 139 mg/dL (70-105); Potassium 4.9 mmol/L (3.5-5.1); Sodium 134 mmol/L (136-145)
[2023-05-17] MEDS ORDERED: Sodium Chloride 0.9% 1,000 ML IV SCH (07:45)
[2023-05-17] MEDS: Empagliflozin 25 MG TAB PO SCH (08:29)
[2023-05-17] MEDS: Cefepime 1 GM in Sodium Chloride 0.9% 100 ML IVPB SCH ×2 (08:29→19:54)
[2023-05-17] MEDS: metroNIDAZOLE 500 MG TAB PO SCH ×3 (08:30→19:55)
[2023-05-17] MEDS: Aspirin Chewable 81 MG TAB PO SCH (08:30)
[2023-05-17] MEDS: Pregabalin 75 MG CAP PO SCH ×2 (08:30→19:55)
[2023-05-17 15:34] LABS: Vancomycin, Trough 10.6 ug/mL
[2023-05-17] MEDS: Vancomycin 1.5 GRAM/300 ML BAG 1.5 GM in Premix Bag 1 BAG IVPB SCH (16:17)
[2023-05-17] MEDS: Morphine 2 MG/ML VIAL SLOW IVP PRN (19:52)
[2023-05-17] MEDS: Acetaminophen 325 MG TAB PO PRN (19:55)
[2023-05-17] MEDS: Rosuvastatin 20 MG TAB PO SCH (19:55)
[2023-05-18 06:58] LABS: #Basophils 0.1 thou/uL (0.0-0.2); #Eosinphils 0.3 thou/uL (0.0-0.7); #Monocytes 0.9 thou/uL (0.11-0.59); #Neutrophils 7.4 thou/uL (1.40-6.50); %Basophils 0.7 % (0.0-1.0); %Eosinophils 2.6 % (0.0-10.0); %Lymphocytes 18.8 % (21.0-51.0); %Monocytes 8.4 % (0.0-10.0); %Neutrophils 67.9 % (42.0-75.0); Hematocrit 32.7 % (42.0-52.0); Hemoglobin 10.7 g/dL (14.0-18.0); Mean Corpuscular HGB CONC 32.7 g/dL (32.0-36.0); Mean Corpuscular Volume 97.9 fl (78.0-98.0); Mean Platelet Volume 11.6 fL (7.4-10.4); Platelet Count 153 10x3/uL (130-400); RBC Distribution Width 12.4 % (11.5-14.5); Red Blood Cell (RBC) Count 3.34 mill/uL (4.70-6.10); White Blood Cell (WBC) Count 10.9 10x3/uL (4.8-10.8)
[2023-05-18 07:21] LABS: Anion Gap 18 mmol/L (10-20); BUN (Urea Nitrogen) 21 mg/dL (8.4-25.7); CRP (Inflammatory) 14.34 mg/dL (= or < 0.5); Calc. Creatinine Clearance 58 mL/min (70-130); Calcium 8.9 mg/dL (7.8-10.44); Carbon Dioxide 14 mmol/L (22-29); Chloride 107 mmol/L (98-107); Estimated GFR 52; Glucose 146 mg/dL (70-105); Potassium 4.8 mmol/L (3.5-5.1); Sodium 134 mmol/L (136-145)
[2023-05-18] MEDS: Cefepime 1 GM in Sodium Chloride 0.9% 100 ML IVPB SCH ×2 (07:56→21:15)
[2023-05-18] MEDS: Pregabalin 75 MG CAP PO SCH ×2 (07:58→21:14)
[2023-05-18] MEDS: Aspirin Chewable 81 MG TAB PO SCH (07:58)
[2023-05-18] MEDS: Empagliflozin 25 MG TAB PO SCH (07:58)
[2023-05-18] MEDS: metroNIDAZOLE 500 MG TAB PO SCH ×3 (07:58→21:15)
[2023-05-18] MEDS: Sodium Chloride 0.9% 1,000 ML IV SCH ×2 (09:42→16:34)
[2023-05-18] MEDS ORDERED: fentaNYL PF 100 MCG/2 ML SYRINGE ONE (14:10)
[2023-05-18] MEDS ORDERED: Lidocaine 1% PF 5 ML VIAL ONE (14:18)
[2023-05-18] MEDS ORDERED: PROPOFOL 200 MG/20 ML VIAL ONE (14:18)
[2023-05-18] MEDS ORDERED: PHENYLEPHRINE-NS 100 MCG/ML 10 ML SYRINGE ONE (14:18)
[2023-05-18] MEDS ORDERED: Ondansetron PF 4 MG/2 ML Vial ONE (14:18)
[2023-05-18] MEDS ORDERED: Acetaminophen 500 MG TAB PO PRN (14:52)
[2023-05-18] MEDS ORDERED: Ondansetron HCl/PF 4 MG/2 ML Vial IVP PRN (14:56)
[2023-05-18] MEDS ORDERED: Promethazine HCl 25 MG/ML VIAL IM PRN (14:56)
[2023-05-18] MEDS ORDERED: Acetaminophen 500 MG TAB PO SCH (15:00)
[2023-05-18] MEDS ORDERED: fentaNYL 50 mcg/mL 1 mL Vial ONE ×2 (15:17→15:32)
[2023-05-18] MEDS ORDERED: Gabapentin 300 MG CAP ONE (15:37)
[2023-05-18] MEDS ORDERED: Acetaminophen 500 MG TAB ONE (15:37)
[2023-05-18] MEDS: Gabapentin 300 MG CAP PO SCH ×2 (15:40→21:13)
[2023-05-18] MEDS: Vancomycin 1.5 GRAM/300 ML BAG 1.5 GM in Premix Bag 1 BAG IVPB SCH (16:05)
[2023-05-18] MEDS: Morphine 2 MG/ML VIAL SLOW IVP PRN (19:01)
[2023-05-18] MEDS ORDERED: Simvastatin 5 MG TAB PO SCH (21:00)
[2023-05-19] MEDS: Morphine 2 MG/ML VIAL SLOW IVP PRN ×3 (00:47→22:02)
[2023-05-19] MEDS: Sodium Chloride 0.9% 1,000 ML IV SCH ×4 (05:47→21:51)
[2023-05-19 05:49] LABS: #Basophils 0.1 thou/uL (0.0-0.2); #Eosinphils 0.3 thou/uL (0.0-0.7); #Monocytes 0.8 thou/uL (0.11-0.59); #Neutrophils 4.9 thou/uL (1.40-6.50); %Basophils 1.3 % (0.0-1.0); %Eosinophils 3.8 % (0.0-10.0); %Lymphocytes 26.7 % (21.0-51.0); %Monocytes 9.5 % (0.0-10.0); %Neutrophils 56.7 % (42.0-75.0); Hematocrit 31.8 % (42.0-52.0); Hemoglobin 10.5 g/dL (14.0-18.0); Mean Corpuscular Hemoglobin 32.5 pg (27.0-31.0); Mean Corpuscular Volume 98.5 fl (78.0-98.0); Platelet Count 161 10x3/uL (130-400); RBC Distribution Width 12.5 % (11.5-14.5); Red Blood Cell (RBC) Count 3.23 mill/uL (4.70-6.10); White Blood Cell (WBC) Count 8.6 10x3/uL (4.8-10.8)
[2023-05-19 06:26] LABS: Anion Gap 15 mmol/L (10-20); BUN (Urea Nitrogen) 17 mg/dL (8.4-25.7); Calc. Creatinine Clearance 60 mL/min (70-130); Calcium 8.8 mg/dL (7.8-10.44); Carbon Dioxide 17 mmol/L (22-29); Chloride 108 mmol/L (98-107); Estimated GFR 54; Glucose 138 mg/dL (70-105); Potassium 5.2 mmol/L (3.5-5.1); Sodium 135 mmol/L (136-145)
[2023-05-19] MEDS: Cefepime 1 GM in Sodium Chloride 0.9% 100 ML IVPB SCH ×2 (08:06→21:53)
[2023-05-19] MEDS: Aspirin Chewable 81 MG TAB PO SCH (08:07)
[2023-05-19] MEDS: Gabapentin 300 MG CAP PO SCH ×3 (08:07→21:52)
[2023-05-19] MEDS: metroNIDAZOLE 500 MG TAB PO SCH ×3 (08:08→21:53)
[2023-05-19] MEDS: Empagliflozin 25 MG TAB PO SCH (08:08)
[2023-05-19] MEDS: Pregabalin 75 MG CAP PO SCH ×2 (08:08→21:51)
[2023-05-19] MEDS: Vancomycin 1.5 GRAM/300 ML BAG 1.5 GM in Premix Bag 1 BAG IVPB SCH (16:00)
[2023-05-19 16:56] LABS: Vancomycin, Trough 21.5 ug/mL
[2023-05-19] MEDS ORDERED: Vancomycin 1.5 GRAM/300 ML BAG 1.5 GM in Premix Bag 1 BAG IVPB SCH (17:30)
[2023-05-20 07:13] LABS: Anion Gap 14 mmol/L (10-20); BUN (Urea Nitrogen) 12 mg/dL (8.4-25.7); Calc. Creatinine Clearance 71 mL/min (70-130); Calcium 8.6 mg/dL (7.8-10.44); Carbon Dioxide 16 mmol/L (22-29); Chloride 109 mmol/L (98-107); Estimated GFR 67; Glucose 123 mg/dL (70-105); Potassium 4.3 mmol/L (3.5-5.1); Sodium 135 mmol/L (136-145)
[2023-05-20] MEDS: Morphine 2 MG/ML VIAL SLOW IVP PRN ×3 (08:22→22:01)
[2023-05-20] MEDS: Cefepime 1 GM in Sodium Chloride 0.9% 100 ML IVPB SCH ×2 (08:24→21:54)
[2023-05-20] MEDS: Pregabalin 75 MG CAP PO SCH ×2 (08:27→21:52)
[2023-05-20] MEDS: Gabapentin 300 MG CAP PO SCH ×3 (08:28→21:53)
[2023-05-20] MEDS: metroNIDAZOLE 500 MG TAB PO SCH ×3 (08:28→21:53)
[2023-05-20] MEDS: Empagliflozin 25 MG TAB PO SCH (08:28)
[2023-05-20] MEDS: Aspirin Chewable 81 MG TAB PO SCH (08:28)
[2023-05-20] MEDS: Sodium Chloride 0.9% 1,000 ML IV SCH ×2 (08:50→19:01)
[2023-05-20] MEDS: HumaLOG 300 UNITS/3 ML VIAL SC PRN ×2 (14:12→18:31)
[2023-05-20 15:26] LABS: Vancomycin, Trough 16.7 ug/mL
[2023-05-20] MEDS ORDERED: Vancomycin 1.5 GRAM/300 ML BAG 1.5 GM in Premix Bag 1 BAG IVPB SCH (16:00)
[2023-05-21] MEDS: Sodium Chloride 0.9% 1,000 ML IV SCH (05:12)
[2023-05-21] MEDS: Cefepime 1 GM in Sodium Chloride 0.9% 100 ML IVPB SCH (08:10)
[2023-05-21] MEDS: Aspirin Chewable 81 MG TAB PO SCH (08:11)
[2023-05-21] MEDS: Gabapentin 300 MG CAP PO SCH ×3 (08:11→20:31)
[2023-05-21] MEDS: metroNIDAZOLE 500 MG TAB PO SCH (08:11)
[2023-05-21] MEDS: Pregabalin 75 MG CAP PO SCH ×2 (08:12→20:29)
[2023-05-21] MEDS: Empagliflozin 25 MG TAB PO SCH (08:13)
[2023-05-21] MEDS: Morphine 2 MG/ML VIAL SLOW IVP PRN ×2 (10:10→20:31)
[2023-05-22 07:40] VITALS: BP 135/77; TEMP 98
[2023-05-22] MEDS: Empagliflozin 25 MG TAB PO SCH (09:07)
[2023-05-22] MEDS: Gabapentin 300 MG CAP PO SCH ×2 (09:07→15:13)
[2023-05-22] MEDS: Aspirin Chewable 81 MG TAB PO SCH (09:07)
[2023-05-22] MEDS: Pregabalin 75 MG CAP PO SCH (09:07)
[2023-05-22] MEDS: Morphine 2 MG/ML VIAL SLOW IVP PRN (11:50)
== END 2023-05-22 16:21 | disposition home or self-care (01) | DRG 240 ==
LOC: ERS 15:04 → T4-B 18:16
PROVIDERS: ADMIT Student in an Organized Health Care Education/Training Program; ATTEND Family Medicine
PROC: 0JBR0ZZ Excision of Left Foot Subcutaneous Tissue and Fascia, Open Approach (ICD-10-PCS; principal; 2023-05-16)
PROC: 0Y6N0Z9 Detachment at Left Foot, Partial 1st Ray, Open Approach (ICD-10-PCS; 2023-05-18)
PROC: 0JBR0ZZ Excision of Left Foot Subcutaneous Tissue and Fascia, Open Approach (ICD-10-PCS; 2023-05-18)
DX: E11.52 Type 2 diabetes mellitus with diabetic peripheral angiopathy with gangrene (principal); L03.116 Cellulitis of left lower limb; N17.9 Acute kidney failure, unspecified; I12.9 Hypertensive chronic kidney disease with stage 1 through stage 4 chronic kidney disease, or unspecified chronic kidney disease; E11.22 Type 2 diabetes mellitus with diabetic chronic kidney disease; E11.40 Type 2 diabetes mellitus with diabetic neuropathy, unspecified; K21.9 Gastro-esophageal reflux disease without esophagitis; N18.2 Chronic kidney disease, stage 2 (mild); D63.1 Anemia in chronic kidney disease; R79.82 Elevated C-reactive protein (CRP); E11.621 Type 2 diabetes mellitus with foot ulcer; L97.529 Non-pressure chronic ulcer of other part of left foot with unspecified severity; I70.202 Unspecified atherosclerosis of native arteries of extremities, left leg; E78.00 Pure hypercholesterolemia, unspecified; E11.628 Type 2 diabetes mellitus with other skin complications; F17.220 Nicotine dependence, chewing tobacco, uncomplicated; Z79.84 Long term (current) use of oral hypoglycemic drugs; Z79.899 Other long term (current) drug therapy
CPT/HCPCS: 36415; 36416; 80048; 80053; 80202; 81001; 82010; 83036; 83605; 83690; 83880; 84484; 85025; 85652; 86140; 87040; 87070; 87205; 88305; 93005; 93923; 96365; 96367; 96375; 97139; J0692; J1650; J2270; J2272; J2405; J2543; J2704; J3010; J3370; J3370-JW; J3490; J7050; J7120